=== PATIENT | male | born 1985 | race Two or more races ===

== ENCOUNTER 2016-08-19 14:56 | Emergency (ER) | payer OTHER ==
[2016-08-19 15:05] VITALS: RESP 16
--- NOTE | 2016-08-19 15:21 | EDPHY ---
H & P Time Seen by Provider: 08/19/16 15:07 HPI/ROS: CHIEF COMPLAINT: Clotted fistula. HISTORY OF PRESENT ILLNESS: The patient is a 30-year-old male, with history of end stage renal disease, on dialysis, who presents with a clotted fistula. The patient was unable to receive dialysis today because of the clotted fistula. He was last dialyzed two days ago, on Monday, with no issue. He reports no pain at the site fistula. No upper extremity numbness or weakness. REVIEW OF SYSTEMS: A comprehensive 10 point review of systems is otherwise negative aside from elements mentioned in the history of present illness. Past Medical/Surgical History: End stage renal disease, on dialysis. Mitral valve repair, Cholecystectomy, Thyroidectomy. Social History: No recent alcohol. Smoking Status: Never smoked Physical Exam: General Appearance: Alert, pleasant Eyes: Pupils equal and round ENT, Mouth: Mucous membranes moist Neck: Normal inspection Respiratory: Lungs are clear to auscultation Cardiovascular: Regular rate and rhythm Neurological: A&O, nonfocal, normal gait Skin: Warm and dry, no erythema, warmth or tenderness Extremities: left upper extremity fistula, no thrill Vascular: normal radial pulse Psychiatric: Mood and affect normal Constitutional: Initial Vital Signs Temperature (C) 37.1 C 08/19/16 15:02 Heart Rate 82 08/19/16 15:02 Respiratory Rate 16 08/19/16 15:02 Blood Pressure 90/60 L 08/19/16 15:02 O2 Sat (%) 96 08/19/16 15:02 O2 Delivery Mode Room Air Allergies/Adverse Reactions: No Known Allergies Allergy (Unverified 08/19/16 15:05) Home Medications: Medication Instructions Recorded Aspirin 81mg (*) 81 mg PO DAILY 08/19/16 Calcium Acetate 08/19/16 Metoprolol Tartrate 25 mg PO DAILY 08/19/16 Sensipar 90 mg PO DAILY 08/19/16 Sucralfate 1 gm PO DAILY 08/19/16 Temazepam 15 mg PO DAILY 08/19/16 Medical Decision Making - Diagnostics Imaging Results: Imaging Impressions Angioplasty 08/19/16 00:00 Impression: 1. Complete thrombosis of left upper extremity arteriovenous loop graft fistula , successfully mechanically declotted with difficulty. 2. Covered stent-graft of stenotic outflow segment just upstream of the venous anastomosis, with full patency restored. I discussed results with Dr. Savannah Redd at 2000 hours. - - - - - - - - - - - - - - - - - - - - - - - - - - - - - (PQRS measures: Current medications were listed in the medical record, including all known prescriptions, doru-jgm-ntuwcul medications, herbal medications, and nutritional supplements. Tobacco use: None. Prophylactic antibiotic: Unnecessary. VTE prophylaxis: Unnecessary.) IR call Vascular Stent Procedure 08/19/16 00:00 Impression: 1. Complete thrombosis of left upper extremity arteriovenous loop graft fistula , successfully mechanically declotted with difficulty. 2. Covered stent-graft of stenotic outflow segment just upstream of the venous anastomosis, with full patency restored. I discussed results with Dr. Savannah Redd at 2000 hours. - - - - - - - - - - - - - - - - - - - - - - - - - - - - - (PQRS measures: Current medications were listed in the medical record, including all known prescriptions, ccjp-uvo-itsulrc medications, herbal medications, and nutritional supplements. Tobacco use: None. Prophylactic antibiotic: Unnecessary. VTE prophylaxis: Unnecessary.) IR call Extremity Venous Study 08/19/16 15:25 Impression: 1. Complete thrombosis of left upper extremity arteriovenous loop graft fistula , successfully mechanically declotted with difficulty. 2. Covered stent-graft of stenotic outflow segment just upstream of the venous anastomosis, with full patency restored. I discussed results with Dr. Savannah Redd at 2000 hours. - - - - - - - - - - - - - - - - - - - - - - - - - - - - - (PQRS measures: Current medications were listed in the medical record, including all known prescriptions, vlur-cyo-ljrxyls medications, herbal medications, and nutritional supplements. Tobacco use: None. Prophylactic antibiotic: Unnecessary. VTE prophylaxis: Unnecessary.) IR call ED Course/Re-evaluation: 1525: I consulted with Dr. Sean Muñiz, Radiology, he will arrange for IR thrombectomy. The patient tolerated the procedure well. He returned to the emergency department after the procedure. Discharged home with a prepack of E[place]. - Data Points Medications Given: Discontinued Medications Hydrocodone Bitart/Acetaminophen (E[place] 5/325mg Prepack#6) 1 btl ADAMA LYNN ONE Stop: 08/19/16 19:51 Last Admin: 08/19/16 20:05 Dose: 1 btl Departure - Departure Disposition: Home, Routine, Self-Care Clinical Impression: Complication of AV dialysis fistula Qualifiers: Encounter type: initial encounter Qualified Code(s): T82.9XXA - Unspecified complication of cardiac and vascular prosthetic device, implant and graft, initial encounter Condition: Good Instructions: Additional Information, Hydrocodone/Acetaminophen (By mouth) Additional Instructions: Please call your dialysis today to arrange for your next dialysis. Return to the Emergency Department with new or worsening symptoms. Referrals: Kedar Daniels MD [Primary Care Provider] - As per Instructions Report Scribed for: Savannah Redd Report Scribed by: Kamala Willett Date of Report: 08/19/16 Time of Report: 15:21 Physician Review and Approval Statement: 08/19/16 15:23 Portions of this note were transcribed by a biomedical instrument technician. I personally performed the history, physical exam, and medical decision-making; and confirmed the accuracy of the information in the transcribed note.
[2016-08-19] MEDS ORDERED: fentaNYL 100 MCG/2 ML INJ ONE ×2 (16:41→18:31)
[2016-08-19] MEDS ORDERED: NS 1,000 ML IV SCH (17:00)
[2016-08-19] MEDS ORDERED: ONDANSETRON 4 MG/2 ML VIAL ONE (17:23)
[2016-08-19] MEDS ORDERED: HEPARIN 10,000 UNIT/10 ML MDV ONE (17:24)
[2016-08-19] MEDS ORDERED: IOPAMIDOL (ISOVUE-300) 100 ML BTL ONE ×2 (18:02→18:35)
[2016-08-19] MEDS ORDERED: PROTAMINE SULFATE 50 MG/5 ML VIAL IVP ONE (19:20)
[2016-08-19] MEDS ORDERED: HYDROCOD/APAP 5/325 PREPACK#6 BTL TAKEHOME ONE (19:50)
[2016-08-19 21:52] VITALS: BP 103/60; PULSE 73; TEMP 98.4; O2SAT 97
== END 2016-08-19 20:19 | disposition home or self-care (01) ==
DX: T82.868A Thrombosis due to vascular prosthetic devices, implants and grafts, initial encounter (principal); Z79.82 Long term (current) use of aspirin; Y71.2 Prosthetic and other implants, materials and accessory cardiovascular devices associated with adverse incidents
CPT/HCPCS: 36906; 36907; 99152; 99153; 99283; C1725; C1757; C1769; C1874; C1887; C1894; J1644; J2405; J2720; J3010; Q9967

== ENCOUNTER 2016-09-02 14:44 | Emergency (ER) | payer OTHER ==
--- NOTE | 2016-09-02 17:18 | EDPHY ---
H & P Stated Complaint: pt unable to get dialysis r/t clogged port/last used monday Time Seen by Provider: 09/02/16 17:05 HPI/ROS: CHIEF COMPLAINT: Clogged dialysis port HISTORY OF PRESENT ILLNESS: This is a 30-year-old male patient presenting to the emergency department complaining of possible clogged dialysis port. Patient was at dialysis around 2 o'clock today they were attempting to access his dialysis port unable to was sent here for possible clot. Patient states his last dialysis was Monday without complications. Was seen 2 weeks ago for the same problem clogged fistula. Patient states he is having pain from the fistula to his left axilla, was unable to get dialysis today. Denies any chest pain or shortness of breath REVIEW OF SYSTEMS: Constitutional: No fever, no chills. Eyes: No discharge. ENT: No sore throat. Cardiovascular: No chest pain, no palpitations. Respiratory: No cough, no shortness of breath. Gastrointestinal: No abdominal pain, no vomiting. Genitourinary: No hematuria. Musculoskeletal: No back pain. Left upper extremity pain Skin: No rashes. Neurological: No headache. Source: Patient, Old records - Personal History Current Tetanus/Diphtheria Vaccine: Yes - Medical/Surgical History Hx Asthma: No Hx Chronic Respiratory Disease: No Hx Diabetes: No Hx Cardiac Disease: Yes Hx Renal Disease: Yes Hx Cirrhosis: No Hx Alcoholism: No Hx HIV/AIDS: No Hx Splenectomy or Spleen Trauma: No Other PMH: ESRD, Mitral valve repair., Choly, thyroidectomy - Social History Smoking Status: Never smoked - Physical Exam Exam: General Appearance: Alert, no distress. Eyes: Pupils equal and round no pallor or injection. Icterus ENT, Mouth: Mucous membranes moist. Respiratory: There are no retractions, lungs are clear to auscultation. Cardiovascular: Regular rate and rhythm. Gastrointestinal: Abdomen is soft and nontender, no masses, bowel sounds normal. Neurological: No focal deficits. Answering questions appropriately Skin: Warm and dry, no rashes. Musculoskeletal: Neck is supple nontender. Left upper extremity fistula no bruit noted no thrill, tender on palpation up to left axilla Extremities: symmetrical, full range of motion. Psychiatric: Patient is oriented X 3, there is no agitation. Constitutional: Initial Vital Signs Temperature (C) 36.9 C 09/02/16 15:00 Heart Rate 76 09/02/16 15:00 Respiratory Rate 17 09/02/16 15:00 Blood Pressure 92/55 L 09/02/16 15:00 O2 Sat (%) 97 09/02/16 15:00 O2 Delivery Mode Room Air Allergies/Adverse Reactions: No Known Allergies Allergy (Verified 09/02/16 15:00) Home Medications: Medication Instructions Recorded Aspirin 81mg (*) 81 mg PO DAILY 08/19/16 Calcium Acetate 08/19/16 Metoprolol Tartrate 25 mg PO DAILY 08/19/16 Sensipar 90 mg PO DAILY 08/19/16 Sucralfate 1 gm PO DAILY 08/19/16 Temazepam 15 mg PO DAILY 08/19/16 Medical Decision Making ED Course/Re-evaluation: Discussed ED plan of care: CBC, CMP, ultrasound left upper extremity 183: Spoke with Dr. Kelley, positive clot noted to fistula 1834: Consult with Dr. Grijalva with [facility], aware potassium 5.7 recommend call and consult consult with interventional Radiology Dr. Sarah, they will attempt to unclog is for this evening. Then patient can follow up on dialysis on Monday: Dewey with Interventional Radiology at bedside with Dr. Sarah , the tPA injected into fistula. Patient to IR within an hour 2030: Patient re-evaluation stable no apparent distress resting comfortably 2130: Patient going to IR, stable no apparent distress 0010: Patient back from IR. No complications during procedure. Positive thrill positive bruit noted to fistula, pressure dressings noted. Patient stable not in any apparent distress 0140: Discharge home---> stable, not in any distress, no bleeding noted to fistula. discussed all discharge instructions with patient Differential Diagnosis: Other differential diagnosis considered but not limited to emergent dialysis, hyperkalemia, - Data Points Laboratory Results: Laboratory Results 09/02/16 17:50 09/02/16 17:50 09/02/16 09/02/16 17:50 17:50 WBC 11.20 10^3/uL H 10^3/uL (3.80-9.50) RBC 3.31 10^6/uL L 10^6/uL (4.40-6.38) Hgb 10.8 g/dL L g/dL (13.7-17.5) Hct 33.8 % L % (40.0-51.0) MCV 102.1 fL H fL (81.5-99.8) MCH 32.6 pg pg (27.9-34.1) MCHC 32.0 g/dL L g/dL (32.4-36.7) RDW 14.7 % % (11.5-15.2) Plt Count 301 10^3/uL 10^3/uL (150-400) MPV 10.4 fL fL (8.7-11.7) Neut % (Auto) 49.5 % % (39.3-74.2) Lymph % (Auto) 33.8 % % (15.0-45.0) Sibley % (Auto) 11.9 % % (4.5-13.0) Eos % (Auto) 4.0 % % (0.6-7.6) Baso % (Auto) 0.4 % % (0.3-1.7) Nucleat RBC Rel Count 0.3 % H % (0.0-0.2) Absolute Neuts (auto) 5.54 10^3/uL 10^3/uL (1.70-6.50) Absolute Lymphs (auto) 3.78 10^3/uL H 10^3/uL (1.00-3.00) Absolute Monos (auto) 1.33 10^3/uL H 10^3/uL (0.30-0.80) Absolute Eos (auto) 0.45 10^3/uL H 10^3/uL (0.03-0.40) Absolute Basos (auto) 0.05 10^3/uL 10^3/uL (0.02-0.10) Absolute Nucleated RBC 0.03 10^3/uL H 10^3/uL (0-0.01) Immature Gran % 0.4 % % (0.0-1.1) Immature Gran # 0.05 10^3/uL 10^3/uL (0.00-0.10) Sodium 141 mEq/L mEq/L (134-144) Potassium 5.7 mEq/L H mEq/L (3.5-5.2) Chloride 101 mEq/L mEq/L (97-110) Carbon Dioxide 20 mEq/l L mEq/l (22-31) Anion Gap 20 mEq/L H mEq/L (8-16) BUN 76 mg/dL H mg/dL (7-23) Creatinine 15.3 mg/dL H* mg/dL (0.7-1.3) Estimated GFR 4 Glucose 79 mg/dL mg/dL (70-100) Calcium 8.0 mg/dL L mg/dL (8.5-10.4) Total Bilirubin 0.7 mg/dL mg/dL (0.1-1.4) AST 15 IU/L L IU/L (17-59) ALT 29 IU/L IU/L (21-72) Alkaline Phosphatase 60 IU/L IU/L (38-126) Total Protein 7.9 g/dL g/dL (6.3-8.2) Albumin 4.4 g/dL g/dL (3.5-5.0) Medications Given: Discontinued Medications Oxycodone/Acetaminophen (Percocet 5/325) 1 tab PO EDNOW ONE Stop: 09/03/16 00:56 Last Admin: 09/03/16 00:58 Dose: 1 tab Departure - Departure Clinical Impression: Hyperkalemia Dialysis AV fistula malfunction Qualifiers: Encounter type: subsequent encounter Qualified Code(s): T82.590D - Other mechanical complication of surgically created arteriovenous fistula, subsequent encounter Condition: Good Instructions: Oxycodone/Acetaminophen (By mouth), Hyperkalemia (ED), Fistulogram (ED) Additional Instructions: 1. Decrease your intake of potassium over the weekend 2. Monitor your fistula for any bleeding, increased pain, if you have any chest pain return to the ER 3. Follow up on Monday for dialysis Referrals: Kedar Daniels MD [Primary Care Provider] - As per Instructions
[2016-09-02 18:01] LABS: % IMMATURE GRANULYOCYTES 0.4 % (0.0-1.1); ABSOLUTE IMMATURE GRANULOCYTES 0.05 10^3/uL (0.00-0.10); ABSOLUTE NRBC COUNT 0.03 10^3/uL (0-0.01); ADD DIFF? NO; ADD MORPH? NO; ADD SCAN? NO; ATYPICAL LYMPHOCYTE FLAG 10 (0-99); FRAGMENT RBC FLAG 0 (0-99); HEMATOCRIT 33.8 % (40.0-51.0); HEMOGLOBIN 10.8 g/dL (13.7-17.5); LEFT SHIFT FLG 0 (0-99); LIPEMIA HEMOLYSIS FLAG 80 (0-99); MEAN CELL HEMOGLOBIN 32.6 pg (27.9-34.1); MEAN CELL VOLUME 102.1 fL (81.5-99.8); MEAN PLATELET VOLUME 10.4 fL (8.7-11.7); NRBC-AUTO% 0.3 % (0.0-0.2); PLATELET CLUMPS FLAG 10 (0-99); PLATELET COUNT 301 10^3/uL (150-400); RED BLOOD CELL COUNT 3.31 10^6/uL (4.40-6.38); RED CELL DISTRIBUTION WIDTH 14.7 % (11.5-15.2)
[2016-09-02 18:21] LABS: ALANINE AMINOTRANSFERASE 29 IU/L (21-72); ALBUMIN 4.4 g/dL (3.5-5.0); ALKALINE PHOSPHATASE 60 IU/L (38-126); ANION GAP 20 mEq/L (8-16); ASPARTATE AMINOTRANSFERASE 15 IU/L (17-59); BILIRUBIN,TOTAL 0.7 mg/dL (0.1-1.4); CARBON DIOXIDE 20 mEq/l (22-31); CHLORIDE 101 mEq/L (97-110); GLUCOSE 79 mg/dL (70-100); POTASSIUM 5.7 mEq/L (3.5-5.2); SODIUM 141 mEq/L (134-144); TOTAL PROTEIN 7.9 g/dL (6.3-8.2)
[2016-09-02 18:37] LABS: GLOMERULAR FILTRATION RATE 4
[2016-09-02 18:38] LABS: CREATININE 15.3 mg/dL (0.7-1.3)
[2016-09-02] MEDS ORDERED: ALTEPLASE 2 MG VIAL ONE ×2 (19:15→19:23)
[2016-09-02] MEDS ORDERED: ONDANSETRON 4 MG/2 ML VIAL ONE (21:52)
[2016-09-02] MEDS ORDERED: fentaNYL 100 MCG/2 ML INJ ONE (21:52)
[2016-09-03] MEDS ORDERED: IOPAMIDOL (ISOVUE-300) 100 ML BTL ONE (00:05)
[2016-09-03] MEDS ORDERED: OXYCODONE/APAP 5/325 TAB PO ONE (00:55)
[2016-09-03] MEDS ORDERED: OXYCODONE/APAP 5/325MG PREPACK#4 BTL TAKEHOME ONE (01:38)
[2016-09-03 02:02] VITALS: BP 105/59; PULSE 88; RESP 16; TEMP 97.9; O2SAT 96
== END 2016-09-03 02:02 | disposition home or self-care (01) ==
PROC: 03C83ZZ Extirpation of Matter from Left Brachial Artery, Percutaneous Approach (ICD-10-PCS; principal; 2016-09-02)
PROC: 03763ZZ Dilation of Left Axillary Artery, Percutaneous Approach (ICD-10-PCS; principal; 2016-09-02)
PROC: 05783DZ Dilation of Left Axillary Vein with Intraluminal Device, Percutaneous Approach (ICD-10-PCS; principal; 2016-09-02)
DX: T82.590A Other mechanical complication of surgically created arteriovenous fistula, initial encounter (principal); E87.5 Hyperkalemia; Z45.2 Encounter for adjustment and management of vascular access device; Z79.82 Long term (current) use of aspirin; Y82.8 Other medical devices associated with adverse incidents
CPT/HCPCS: 37184; 37236; 93971; 99284; C1725; C1769; C1876; C1894; J1644; J2997; J3010; Q9967; J2405

== ENCOUNTER 2016-09-26 14:39 | Emergency (ER) | payer OTHER ==
[2016-09-26 14:47] VITALS: TEMP 98.2
--- NOTE | 2016-09-26 15:17 | EDPHY ---
H & P Time Seen by Provider: 09/26/16 15:02 HPI/ROS: CHIEF COMPLAINT: Thrombosed left arm fistula HISTORY OF PRESENT ILLNESS: This 30-year-old man has end-stage renal disease and is dialysis dependent. He had his left arm fistula initially placed in [facility] and had it opened by interventional radiology here on August 19 and again on September 02. He dialyzes Monday and had his dialysis on Monday without complications but presented today and they were unable to access is graft. Currently there is no thrill and the patient says he is here because it is clotted. Denies dizziness or syncope, denies chest pain or shortness of breath. REVIEW OF SYSTEMS: Eye: no change in vision ENT: no sore throat Cardiac: no chest pain or syncope Pulmonary: no cough or SOB Abdomen: no vomiting, diarrhea, abdominal pain Musculoskeletal: no back pain Skin: no rash Neuro: no headache Constitutional: no fever : no urinary symptoms A comprehensive 10 point review of systems is otherwise negative aside from elements mentioned in the history of present illness. PAST MEDICAL HISTORY: End-stage renal disease. Mitral valve repair, cholecystectomy. Social history: Nonsmoker General Appearance: Alert and conversant, cooperative. Eyes: No scleral icterus. ENT, Mouth: Normal mucous membranes. Respiratory: Normal respiratory effort, breath sounds equal, lungs are clear to auscultation. Cardiovascular: Regular rate and rhythm. Patient has left arm vascular AV fistula which does not have a thrill and feels firm to palpation. There is no overlying swelling or redness or warmth. Normal motor and sensory in the left hand. Left hand is well perfused. Gastrointestinal: Abdomen is soft and non tender. Neurological: Alert and oriented x3. Normally conversant. Face symmetric, normal movement and sensation in all extremities. Skin: Warm and dry, no rashes. Musculoskeletal: No peripheral edema and no joint swelling. Psychiatric: Not agitated. Emergency Department course/MDM: Discussed with Allie 1516. Labs drawn to check potassium. Discussed with Dr. Sarah at 3:32 p.m., interventional radiology does not have additional ability to unclog his fistula , will place dialysis catheter tunneled tomorrow morning as long as his earth moving technician is okay with him waiting for dialysis until tomorrow. Discussed with Dr. Bhagat at 8200. She recommends discharge with 60 g oral Kayexalate, tunneled catheter placement tomorrow, will come to ER afterwards for recheck of labs and dialysis tomorrow in the hospital if necessary as per her, patrick Perez does not dialyze on Tuesdays. Smoking Status: Never smoked Constitutional: Initial Vital Signs Temperature (C) 36.8 C 09/26/16 14:45 Heart Rate 72 09/26/16 14:45 Respiratory Rate 16 09/26/16 14:45 Blood Pressure 135/81 H 09/26/16 14:45 O2 Sat (%) 96 09/26/16 14:45 O2 Delivery Mode Room Air Allergies/Adverse Reactions: No Known Allergies Allergy (Verified 09/26/16 14:45) Home Medications: Medication Instructions Recorded Aspirin 81mg (*) 81 mg PO DAILY 08/19/16 Calcium Acetate 08/19/16 Metoprolol Tartrate 25 mg PO DAILY 08/19/16 Sensipar 90 mg PO DAILY 08/19/16 Sucralfate 1 gm PO DAILY 08/19/16 Temazepam 15 mg PO DAILY 08/19/16 Medical Decision Making - Data Points Laboratory Results: Laboratory Results 09/26/16 15:07 09/26/16 15:07 09/26/16 09/26/16 15:07 15:07 WBC 9.55 10^3/uL H 10^3/uL (3.80-9.50) RBC 3.21 10^6/uL L 10^6/uL (4.40-6.38) Hgb 10.4 g/dL L g/dL (13.7-17.5) Hct 32.0 % L % (40.0-51.0) MCV 99.7 fL fL (81.5-99.8) MCH 32.4 pg pg (27.9-34.1) MCHC 32.5 g/dL g/dL (32.4-36.7) RDW 14.0 % % (11.5-15.2) Plt Count 207 10^3/uL 10^3/uL (150-400) MPV 10.7 fL fL (8.7-11.7) Neut % (Auto) 50.3 % % (39.3-74.2) Lymph % (Auto) 36.5 % % (15.0-45.0) [place]kins % (Auto) 9.9 % % (4.5-13.0) Eos % (Auto) 2.5 % % (0.6-7.6) Baso % (Auto) 0.5 % % (0.3-1.7) Nucleat RBC Rel Count 0.0 % % (0.0-0.2) Absolute Neuts (auto) 4.79 10^3/uL 10^3/uL (1.70-6.50) Absolute Lymphs (auto) 3.49 10^3/uL H 10^3/uL (1.00-3.00) Absolute Monos (auto) 0.95 10^3/uL H 10^3/uL (0.30-0.80) Absolute Eos (auto) 0.24 10^3/uL 10^3/uL (0.03-0.40) Absolute Basos (auto) 0.05 10^3/uL 10^3/uL (0.02-0.10) Absolute Nucleated RBC 0.00 10^3/uL 10^3/uL (0-0.01) Immature Gran % 0.3 % % (0.0-1.1) Immature Gran # 0.03 10^3/uL 10^3/uL (0.00-0.10) Sodium 140 mEq/L mEq/L (134-144) Potassium 5.6 mEq/L H mEq/L (3.5-5.2) Chloride 96 mEq/L L mEq/L (97-110) Carbon Dioxide 20 mEq/l L mEq/l (22-31) Anion Gap 24 mEq/L H mEq/L (8-16) BUN 117 mg/dL H* mg/dL (7-23) Creatinine 18.2 mg/dL H* mg/dL (0.7-1.3) Estimated GFR 3 Glucose 91 mg/dL mg/dL (70-100) Calcium 7.7 mg/dL L mg/dL (8.5-10.4) Total Bilirubin 0.5 mg/dL mg/dL (0.1-1.4) AST 10 IU/L L IU/L (17-59) ALT 30 IU/L IU/L (21-72) Alkaline Phosphatase 76 IU/L IU/L (38-126) Total Protein 7.4 g/dL g/dL (6.3-8.2) Albumin 4.2 g/dL g/dL (3.5-5.0) Medications Given: Discontinued Medications Sodium Polystyrene Sulfonate (Kayexalate) 60 gm PO EDNOW ONE Stop: 09/26/16 17:31 Last Admin: 09/26/16 17:34 Dose: 60 gm Departure - Departure Disposition: Home, Routine, Self-Care Clinical Impression: ESRD (end stage renal disease) on dialysis AV fistula occlusion Qualifiers: Encounter type: initial encounter Qualified Code(s): T82.898A - Other specified complication of vascular prosthetic devices, implants and grafts, initial encounter Condition: Good Instructions: End Stage Kidney Disease (ED) Additional Instructions: Keep your appointment tomorrow morning for a tunneled dialysis catheter as scheduled. After the procedure is complete, you need to come to the emergency department to get your labs drawn to check the potassium and see if you needs dialysis tomorrow in the hospital. Referrals: Kedar Daniels MD [Primary Care Provider] - As per Instructions
[2016-09-26 15:20] LABS: % IMMATURE GRANULYOCYTES 0.3 % (0.0-1.1); ABSOLUTE IMMATURE GRANULOCYTES 0.03 10^3/uL (0.00-0.10); ADD DIFF? NO; ADD MORPH? NO; ADD SCAN? NO; ATYPICAL LYMPHOCYTE FLAG 0 (0-99); FRAGMENT RBC FLAG 0 (0-99); HEMOGLOBIN 10.4 g/dL (13.7-17.5); LEFT SHIFT FLG 0 (0-99); LIPEMIA HEMOLYSIS FLAG 80 (0-99); MEAN CELL HEMOGLOBIN 32.4 pg (27.9-34.1); MEAN CELL HEMOGLOBIN CONCENTR. 32.5 g/dL (32.4-36.7); MEAN CELL VOLUME 99.7 fL (81.5-99.8); MEAN PLATELET VOLUME 10.7 fL (8.7-11.7); PLATELET CLUMPS FLAG 10 (0-99); PLATELET COUNT 207 10^3/uL (150-400); RED BLOOD CELL COUNT 3.21 10^6/uL (4.40-6.38)
[2016-09-26 15:52] LABS: ALANINE AMINOTRANSFERASE 30 IU/L (21-72); ALBUMIN 4.2 g/dL (3.5-5.0); ALKALINE PHOSPHATASE 76 IU/L (38-126); ANION GAP 24 mEq/L (8-16); ASPARTATE AMINOTRANSFERASE 10 IU/L (17-59); BILIRUBIN,TOTAL 0.5 mg/dL (0.1-1.4); CALCIUM 7.7 mg/dL (8.5-10.4); CARBON DIOXIDE 20 mEq/l (22-31); CHLORIDE 96 mEq/L (97-110); GLUCOSE 91 mg/dL (70-100); POTASSIUM 5.6 mEq/L (3.5-5.2); SODIUM 140 mEq/L (134-144); TOTAL PROTEIN 7.4 g/dL (6.3-8.2)
[2016-09-26 16:05] LABS: GLOMERULAR FILTRATION RATE 3
[2016-09-26 16:06] LABS: CREATININE 18.2 mg/dL (0.7-1.3)
[2016-09-26] MEDS ORDERED: SODIUM POLY SULF 15 GM/60 ML BOTTLE PO ONE ×2 (16:48→17:30)
[2016-09-26 17:24] VITALS: BP 123/67; PULSE 88; O2SAT 97
[2016-09-26 17:25] VITALS: RESP 18
[2016-09-26] MEDS ORDERED: SODIUM POLY SULF 15 GM/60 ML BOTTLE ONE (17:30)
== END 2016-09-26 17:22 | disposition home or self-care (01) ==
DX: T82.898A Other specified complication of vascular prosthetic devices, implants and grafts, initial encounter (principal); N18.6 End stage renal disease; Z79.82 Long term (current) use of aspirin; Y82.8 Other medical devices associated with adverse incidents

== ENCOUNTER 2016-09-27 11:36 | Inpatient (IN) | payer OTHER ==
[2016-09-27 11:00] LABS: ANION GAP 23 mEq/L (8-16); CARBON DIOXIDE 17 mEq/l (22-31); CHLORIDE 98 mEq/L (97-110); GLUCOSE 88 mg/dL (70-100); SODIUM 138 mEq/L (134-144)
[2016-09-27 11:21] LABS: CREATININE 19.7 mg/dL (0.7-1.3); GLOMERULAR FILTRATION RATE 3
[2016-09-27 11:23] LABS: POTASSIUM 7.2 mEq/L (3.5-5.2)
[~2016-09-27 11:36] MED LIST: FLUMAZENIL 0.5 MG/5 ML MDV IVP ONE; HEPARIN 50,000 UNIT/10 ML VIAL ONE; LIDOCAINE 1% 300 MG/30 ML SDV ONE; MIDAZOLAM 2 MG/2 ML VIAL ONE; NALOXONE HCL 0.4 MG/ML INJ ONE; NS 1,000 ML IV SCH; ONDANSETRON 4 MG/2 ML VIAL ONE; fentaNYL 100 MCG/2 ML INJ ONE
[2016-09-27] MEDS ORDERED: CALCIUM GLUCONATE 50 ML IV ONE (12:25)
[2016-09-27] MEDS ORDERED: INSULIN REGULAR HUMAN 100 UNIT/ML IVP ONE (12:25)
[2016-09-27] MEDS ORDERED: D50W 25 GM/50 ML SYR IVP ONE (12:25)
--- NOTE | 2016-09-27 12:26 | EDPHY ---
H & P Time Seen by Provider: 09/27/16 12:25 HPI/ROS: CHIEF COMPLAINT: Hyperkalemia HISTORY OF PRESENT ILLNESS: 30-year-old man was here yesterday with a clotted left AV dialysis fistula. He is usually a Monday patient. He had a tunneled right subclavian dialysis catheter placed today and his potassium is 7.2. He denies shortness of breath or dizziness, no chest pain, no syncope. He does not have swollen legs. REVIEW OF SYSTEMS: Eye: no change in vision ENT: no sore throat Cardiac: no chest pain or syncope Pulmonary: no cough or SOB Abdomen: no vomiting, diarrhea, abdominal pain Musculoskeletal: no back pain Skin: Thrombosed left AV fistula. Neuro: no headache, no weakness or numbness in left hand Constitutional: no fever : no urinary symptoms A comprehensive 10 point review of systems is otherwise negative aside from elements mentioned in the history of present illness. PAST MEDICAL HISTORY: Dialysis dependent, mitral valve repair, thyroid, cholecystectomy Social history: Nonsmoker Vital signs at 11:49 a.m. include blood pressure 95/68, heart rate 62, respiratory rate 16, oxygen saturation 100%, temperature 36.8degrees. General Appearance: Alert and conversant, cooperative. Eyes: No scleral icterus. ENT, Mouth: Normal mucous membranes. Respiratory: Normal respiratory effort, breath sounds equal, lungs are clear to auscultation. Cardiovascular: Regular rate and rhythm. Left AV fistula is clotted without a thrill. He has a tunneled right subclavian dialysis catheter in place. Gastrointestinal: Abdomen is soft and non tender. Neurological: Alert and oriented x3. Normally conversant. Face symmetric, normal movement and sensation in all extremities. Skin: Warm and dry, no rashes. Musculoskeletal: No peripheral edema and no joint swelling. Psychiatric: Not agitated. Emergency Department course/MDM: Nikolay Funez 1232. Insulin 10 units, sodium bicarbonate 1 amp, dextrose 1 amp, calcium chloride 10 mL. Admission for dialysis emergently with hyperkalemia. Does not appear to be fluid overloaded. Discussed with Demarcus at 12:38 p.m., patient will go directly to dialysis and then to the telemetry floor. He will need to have outpatient vascular surgery consultation for a permanent dialysis access. Smoking Status: Never smoked Constitutional: Initial Vital Signs Blood Pressure 95/64 L 09/27/16 09:59 O2 Delivery Mode Room Air O2 (L/minute) 2 Allergies/Adverse Reactions: No Known Allergies Allergy (Verified 09/26/16 14:45) Home Medications: Medication Instructions Recorded Aspirin [Aspirin 81mg (*)] 81 mg PO DAILY 08/19/16 Calcium Acetate [Phoslo (*)] 2 - 4 cap PO TIDMEAL 08/19/16 Cinacalcet HCl [Sensipar (*)] 90 mg PO DAILY 08/19/16 Sucralfate [Carafate 1 GM (*)] 1 gm PO DAILY 08/19/16 Temazepam [Restoril 15 MG (*)] 15 mg PO HSPRN PRN 08/19/16 Sevelamer Carbonate [Renvela] 2.4 gm PO TIDMEAL 09/27/16 Medical Decision Making - Diagnostics EKG Interpretation: 12-lead EKG interpreted by me; official reading is in trace master. My interpretation is junctional rhythm rate 59 with QRS 106. Imaging Results: Imaging Impressions Central Venous Line 09/27/16 09:15 Impression: 1. Patent central veins. 2. Tunneled right jugular dialysis catheter placed. Critical Care Time: Critical care time spent by me, Dr. Mcbride, exclusively with the care of this patient was 30 minutes, exclusive of PA or PORTABLE PINCH RIVETER time and exclusive of separate procedures. The organ system at risk was metabolic and I ordered consultation with hospitalist and hydrographic engineer, review of studies, administration of medications to include insulin bicarbonate glucose and calcium to stabilize the patient and prevent worsening of the patient's condition. - Data Points Laboratory Results: Laboratory Results 09/27/16 10:32 09/27/16 10:32 Sodium 138 mEq/L mEq/L (134-144) Potassium 7.2 mEq/L H* mEq/L (3.5-5.2) Chloride 98 mEq/L mEq/L (97-110) Carbon Dioxide 17 mEq/l L mEq/l (22-31) Anion Gap 23 mEq/L H mEq/L (8-16) BUN 135 mg/dL H* mg/dL (7-23) Creatinine 19.7 mg/dL H* mg/dL (0.7-1.3) Estimated GFR 3 Glucose 88 mg/dL mg/dL (70-100) Calcium 7.0 mg/dL L mg/dL (8.5-10.4) Medications Given: Discontinued Medications Dextrose (Dextrose 50% Syringe) 25 gm IVP EDNOW ONE Stop: 09/27/16 12:26 Last Admin: 09/27/16 12:40 Dose: 25 gm Calcium Gluconate (Calcium Gluconate 1 Gm (Premix)) 50 mls @ 100 mls/hr IV EDNOW ONE Stop: 09/27/16 12:54 Last Admin: 09/27/16 12:51 Dose: 50 mls Insulin Human Regular (Humulin R) 10 unit IVP EDNOW ONE Stop: 09/27/16 12:26 Last Admin: 09/27/16 12:42 Dose: 10 units Morphine Sulfate (Morphine) 4 mg IVP EDNOW ONE Stop: 09/27/16 13:15 Last Admin: 09/27/16 13:16 Dose: 4 mg Sodium Bicarbonate (Sodium Bicarbonate) 50 meq IVP EDNOW ONE Stop: 09/27/16 12:34 Last Admin: 09/27/16 12:51 Dose: 50 meq Departure - Departure Disposition: [facility] Inpatient Acute Clinical Impression: Hyperkalemia Condition: Serious
[2016-09-27] MEDS ORDERED: SODIUM BICARBONATE 50 MEQ/50 ML SYR IVP ONE (12:33)
--- NOTE | 2016-09-27 12:49 | CPEKG ---
Heart Rate: 59 RR Interval: 1017 QRSD Interval: 106 QT Interval: 476 QTC Interval: 472 QRS [place]: 79 T Wave [place]: 25 EKG Severity - ABNORMAL ECG - EKG Impression: ACCELERATED JUNCTIONAL ESCAPE RHYTHM EKG Impression: BORDERLINE PROLONGED QT INTERVAL Electronically Signed By: Dayne Mcbride 27-Sep-2016 13:41:52
[2016-09-27] MEDS ORDERED: TEMAZEPAM 15 MG CAP PO PRN (14:14)
[2016-09-27] MEDS ORDERED: ONDANSETRON 4 MG/2 ML VIAL IVP PRN (14:15)
[2016-09-27] MEDS ORDERED: ONDANSETRON DISINTEGRATING 4 MG TAB PO PRN (14:15)
[2016-09-27] MEDS ORDERED: ACETAMINOPHEN 325 MG TAB PO PRN (14:15)
--- NOTE | 2016-09-27 15:09 | GHP ---
[f rep st] HISTORY AND PHYSICAL DATE OF ADMISSION: 09/27/2016 CHIEF COMPLAINT: AV fistula clotted, has not gotten dialysis. HISTORY OF PRESENT ILLNESS: This is a 30-year-old male with a history of end-stage renal disease du e to polycystic kidney disease. His dialysis catheter clotted yesterday, and apparently he did not get dialysis yesterday. He had a tunnelled dialysis catheter placed today, this morning, and he is being admitted for dialysis. He does feel okay other than being hungry. Otherwise, he denies any s ymptoms. No edema or shortness of breath, no fevers or chills. REVIEW OF SYSTEMS: A 10-point review of systems was obtained and otherwise was negative. PAST MEDICAL HISTORY: 1. End-stage renal disease due to polycystic kidney disease. 2. Mitral valve replacement. He is on aspirin for prophylaxis, so I am not sure if this was a [facility] anical valve. MEDICATIONS: Reviewed. SOCIAL HISTORY: No smoking or alcohol. FAMILY HISTORY: No family history of polycystic kidney disease. PHYSICAL EXAM: VITAL SIGNS: Afebrile, blood pressure is 103/78, heart rate 59, oxygen saturation 9 8% on room air. GENERAL: The patient is well developed, in no apparent distress. HEENT: Nonicter ic sclerae. Extraocular muscles intact. Moist mucous membranes. NECK: Supple. No thyromegaly. LUNGS: Good effort. Clear to auscultation bilaterally. CARDIOVASCULAR: Regular rate and rhythm. There is a midsternal sternotomy scar. ABDOMEN: Positive bowel sounds. Soft, nontender, nondiste nded. No hepatosplenomegaly. EXTREMITIES: No clubbing, cyanosis, or edema. SKIN: Without rash. Otherwise intact. NEUROLOGIC: He is alert and oriented x3. Moves all 4 extremities equally. PSY CH: Normal mood and affect. LABS: White count 9. Chemistry: Sodium 138, potassium 7.2, BUN 135, creatinine 19.9. EKG alysa griggs reviewed, shows peaked T-waves. ASSESSMENT: This is a 30-year-old male presenting with hyperkalemia and need for dialysis. PLAN: 1. Hyperkalemia. Patient has already received calcium gluconate, insulin, bicarbonate, and Kayexal ate. He is getting dialysis as I interview the patient. He will probably get dialysis again tomorr ow. 2. End-stage renal disease. As above. 3. Clogged AV fistula. We will defer to Renal. 4. History of mitral valve repair. Continue on aspirin for stroke prophylaxis. /[id number]/MODL
--- NOTE | 2016-09-27 17:19 | SOAPPROG ---
DAYDAY Progress Note Assessment/Plan: Assessment:Plan: ESRD-normally gets dialysis MWF at [facility] dialysis -now with access problems -in need of emergency Hd today due to hyperkalemia -risk for rebound hyperkalemia -he will receive dialysis today and tomorrow as inpatient -this will get him on his regular outpatient schedule and hopefully make up for the lack of effective clearance of waste products and potassium this last week Hyperkalemia-stable on Hd -had hyperkalemia with junctional rhythm -responding to Rx Access-thrombosed AVF -now with tunneled catheter 09/27/16 17:16 Subjective: stable on dialysis Objective: Vital Signs Temp Pulse Resp BP Pulse Ox 36.6 C 59 L 19 103/78 98 09/27/16 11:50 09/27/16 12:58 09/27/16 12:58 09/27/16 12:58 09/27/16 12:58 Physical Exam - Physical Exam General Appearance: WD/WN, alert, no apparent distress, thin EENT: normal ENT inspection Neck: normal inspection, other (R IJ tunneled dialysis catheter) Respiratory: lungs clear, normal breath sounds, No respiratory distress Cardiac/Chest: regular rate, rhythm, systolic murmur Abdomen: normal bowel sounds, non-tender, soft, No organomegaly Skin: normal color, warm/dry Extremities: No swelling Neuro/Psych: no motor/sensory deficits, alert, normal mood/affect ICD10 Worksheet Patient Problems: Problems Problem Status Onset Hyperkalemia Acute
--- NOTE | 2016-09-27 18:09 | GCON ---
[f rep st] CONSULTATION NEPHROLOGY CONSULTATION DATE OF CONSULTATION: 09/27/2016 REASON FOR CONSULTATION: 1. End-stage renal disease, in need of dialysis. 2. Life-threatening hyperkalemia. 3. Junctional heart rhythm. PLAN: 1. Emergency dialysis this afternoon. 2. Dialysis again tomorrow in anticipation of some rebound hyperkalemia. 3. Treat potassium acutely in the emergency room while awaiting initiation of dialysis. 4. Avoid IVs, blood pressures, blood draws in the patient's left arm. 5. Consider surgical consultation for new AV fistula. HISTORY: The patient is a pleasant 30-year-old man admitted through the emergency room with hyperka lemia. He has had problems on dialysis with stenosis and clotting of his left upper arm AV fistula. He typically dialyzes Monday/Monday/Monday at the [facility] unit under the care of Dr. Daniels. He had procedures done on August 19, then September 02. On the , he underwent Jeaneth thrombectomy, along with fistulogram and angioplasty, with infusion of lytic therapy. He subsequen tly had a stent placed. It sounds like this was able to be used for a while, but unfortunately, he presented with rethrombosis yesterday. At that time, further attempts to get the fistula open were not attempted due to previous issues with his anatomy. Plans were made for a tunneled hemodialysis catheter today. Unfortunately, between today and yesterday, the patient's potassium went up from a level of 5.6 to a level of 7.2. For this reason, he was referred to the emergency room for further evaluation and treatment. PAST MEDICAL HISTORY: End-stage renal disease secondary to polycystic kidney disease. He was on di alysis for a period of time and then underwent a living, related renal transplant from his mother. The transplant lasted for approximately 8 years but was lost to rejection. He subsequently has retu rned to dialysis. He recently moved up to [place] to live with family and to be evaluated through the [facility] systems to see if that could help expedite his plan to receive a second r enal transplant. He has met with some of the team so far at the [facility]. He has an appointment to meet the surgeons later this month. He has had problems with mitral valve disease. It is not clear to me whether that was rheumatic in origin. He states he has had mitral valve replacement on 3 separate occasions. He currently is jn e of any cardiopulmonary symptoms. He has also had gallbladder problems and has undergone cholecystectomy. His other medical problems include hypertension, anemia, and hyperparathyroidism. He has had multiple dialysis access surgeries. He states he has also had parathyroidectomy. Other medical problems include gastroesophageal reflux disease. MEDICATIONS: Outpatient medications are aspirin, calcium acetate, metoprolol 25 mg daily, Sensipar 90 mg daily, sucralfate, as well as temazepam. ALLERGIES: None. FAMILY/SOCIAL HISTORY: Noncontributory. He was born in [place]. He has been on dialysis for appro ximately 10-11 years. He had a transplant that lasted 8 years. He is now back on dialysis. REVIEW OF SYSTEMS: Negative, except for that included in the History of Present Illness. Ten-point review of systems was unremarkable. PHYSICAL EXAMINATION: VITAL SIGNS: Temp is 36.6, pulse 59, respirations 19, blood pressure 103/78, saturating 98% on room air. APPEARANCE: No apparent distress. Skin is unremarkable. He has a le ft upper arm AV fistula that is clotted. It is not inflamed and is nontender. He has a new right-s ided tunneled internal jugular vein dialysis catheter. HEART: Regular, with a 2 to 3/6 murmur. CATHY NGS: Clear to auscultation bilaterally to the bases. ABDOMEN: Benign. No obvious organomegaly or masses. No hepatosplenomegaly. EXTREMITIES: Completely free of edema. SKIN: Free of rashes. N EUROMUSCULAR: Intact, nonfocal, moving all extremities. PSYCHIATRIC: Mood and affect are normal. ASSESSMENT: End-stage renal disease, in need of emergency dialysis. The patient was found to have a potassium of 7.2 at the time of placement of a new right-sided tunneled dialysis catheter. His hy perkalemia is certainly due to the effects of the poorly functioning fistula and the inability to ge t regular dialysis because of his access problems. He was treated in the emergency room with D50 in sulin and calcium. Emergency dialysis was arranged. The patient normally gets dialysis Monday/Monn esd/Monday. The plan is to dialyze him this afternoon and then again tomorrow. The patient is at high risk for rebound hyperkalemia given his access issues and current levels of potassium. This w ill get him back on his regular schedule and help avoid complications that could be life-threatening . He currently has a clotted AV fistula. He will need surgical consultation to see if a new fistula c an be created. It sounds like his dialysis access was marginal even before moving from [place]. His surgeon there had advised him that no further interventions could be undertaken to salvage this conn ection. That seems to have been proven the case with the recent studies performed here at [place]. Currently, his blood pressure and volume status appear to be under control. His blood pressure and oxygenation are good. Once dialysis is performed, he should be able to simply go to a monitored bed instead of being in ICU status. The patient is undergoing transplant evaluation at [facility]. Given this, we would deborah id blood products in this patient. This will help reduce the risk of alloimmunization. Copy requested to: Dr. Frances Domingo [facility] Division of Transplant Services /[id number]/MODL
[2016-09-27] MEDS: OXYCODONE/APAP 5/325 TAB PO PRN ×2 (18:36→19:13)
[2016-09-27] MEDS: CALCIUM ACETATE 667 MG CAP PO SCH (19:14)
[2016-09-27] MEDS: SEVELAMER CARBONATE 2.4 GM PO SCH (19:40)
[2016-09-27] MEDS ORDERED: HEPARIN 10,000 UNIT/10 ML MDV ONE (21:00)
[2016-09-28 05:15] LABS: ANION GAP 19 mEq/L (8-16); CALCIUM 8.2 mg/dL (8.5-10.4); CARBON DIOXIDE 22 mEq/l (22-31); CHLORIDE 95 mEq/L (97-110); GLOMERULAR FILTRATION RATE 5; GLUCOSE 82 mg/dL (70-100); POTASSIUM 5.1 mEq/L (3.5-5.2); SODIUM 136 mEq/L (134-144)
[2016-09-28 05:28] LABS: CREATININE 12.6 mg/dL (0.7-1.3)
[2016-09-28] MEDS: OXYCODONE/APAP 5/325 TAB PO PRN ×3 (06:00→11:52)
[2016-09-28 07:17] VITALS: TEMP 98.7
[2016-09-28] MEDS ORDERED: ASPIRIN 81 MG CHEWABLE TAB PO SCH (09:00)
[2016-09-28] MEDS ORDERED: SUCRALFATE 1 GM TAB PO SCH (09:00)
[2016-09-28] MEDS ORDERED: CINACALCET HCL 30 MG TAB PO SCH (09:00)
--- NOTE | 2016-09-28 11:14 | SOAPPROG ---
DAYDAY Progress Note Assessment/Plan: Assessment: 1. esrd: hd today to resume typical mwf schedule. Will need new permanent access , pt aware. 2. access: now with tunneled hd cath, which ran very well. Will need new access as outpt as above. 3. hyperK: resolved with hd, likely exacerbated by recent access issues. 4. dispo: presumably home today. Plan: 09/28/16 11:12 Subjective: Just completed hd, tolerated 2.5L uf without issue. Hoping to go home later today. Objective: Vital Signs Temp Pulse Resp BP Pulse Ox 37.1 C 75 14 92/48 L 96 09/28/16 07:11 09/28/16 07:11 09/28/16 07:11 09/28/16 07:11 09/28/16 07:11 Laboratory Results 09/28/16 04:09 09/27/16 09/28/16 09/29/16 05:59 05:59 05:59 Intake Total 300 Balance 300 Physical Exam - Physical Exam General Appearance: no apparent distress Respiratory: lungs clear Cardiac/Chest: regular rate, rhythm Extremities: pedal edema (none), other (+quiet avg LUE) ICD10 Worksheet Patient Problems: Problems Problem Status Onset Hyperkalemia Acute
[2016-09-28 11:34] VITALS: BP 104/64; PULSE 79; RESP 12; O2SAT 98
[2016-09-28] MEDS: CALCIUM ACETATE 667 MG CAP PO SCH ×2 (11:43→14:31)
[2016-09-28] MEDS: SEVELAMER CARBONATE 2.4 GM PO SCH ×2 (11:44→14:31)
[2016-09-28] MEDS ORDERED: HEPARIN 50,000 UNIT/10 ML VIAL ONE (11:46)
--- NOTE | 2016-09-28 13:34 | PDDCSUM ---
Discharge Summary Discharge Summary: DISCHARGE SUMMARY FOLLOW-UP ITEMS: Follow up with regular outpatient dialysis center DATE OF ADMISSION: 09/27/2016 DATE OF DISCHARGE: 09/28/16 DISCHARGE DIAGNOSES: 1. Acute hyperkalemia 2. Acute metabolic acidosis 3. Clotted AV fistula 4. End-stage renal disease CONSULTATIONS: Nephrology PROCEDURES / IMAGING: Tunnel catheter placed CHIEF COMPLAINT: Clotted AV fistula SUBJECTIVE: Patient is feeling well at time of discharge PHYSICAL EXAM ON DISCHARGE: Systolic blood pressure 90-100, heart rate 60 70, afebrile overnight, satting well on room air, alert awake oriented x3, no apparent distress, no lower extremity edema, no erythema induration or tenderness around the tunnel cath site LABS ON DISCHARGE: Potassium 5.1, serum bicarbonate 22 HOSPITAL COURSE BY PROBLEM: 1. Acute hyperkalemia. The patient presented with acute hyperkalemia potassium level 7.2 in the setting of inability to access his AV fistula an inability to receive outpatient hemodialysis. Emergently received a tunneled catheter placement emergently received hemodialysis. He received 2 dialysis treatments during this hospitalization. 2. End-stage renal disease. Patient had a clotted AV fistula and required emergent catheter placement, after receiving 2 treatments he is stable for discharge and outpatient hemodialysis on his regular schedule. 3. Acute metabolic acidosis. Secondary to inability to access hemodialysis. Serum bicarbonate level was 17 and improved 22 after dialysis. DISCHARGE MEDICATIONS: Please see official discharge medication reconciliation sheet in chart , all home medications the same. DISCHARGE INSTRUCTIONS: Please follow up on your regular scheduled days for hemodialysis. The patient was discharged prior to the originally anticipated 2 midnights of care secondary to highly efficient expeditious care by his nurses, nephrology team, hospitalist, the patient is safe for discharge at this time.
== END 2016-09-28 14:06 | disposition home or self-care (01) | DRG 314 ==
LOC: F2W 17:38
PROVIDERS: ADMIT Internal Medicine; ATTEND Internal Medicine
PROC: 02HV33Z Insertion of Infusion Device into Superior Vena Cava, Percutaneous Approach (ICD-10-PCS; 2016-09-27)
PROC: 5A1D60Z (ICD-10-PCS; principal; 2016-09-27 10:05)
DX: T82.868A Thrombosis due to vascular prosthetic devices, implants and grafts, initial encounter (principal); N18.6 End stage renal disease; E87.2 Acidosis; E87.5 Hyperkalemia
CPT/HCPCS: 96365; C1750; J0610; J1644; J1815; J2250; J2310; J2405; J3010

== ENCOUNTER 2016-10-01 12:52 | Observation (INO) | payer OTHER ==
--- NOTE | 2016-10-01 13:18 | EDPHY ---
H & P Time Seen by Provider: 10/01/16 13:09 HPI/ROS: Chief complaint. Visual issues, lightheaded, nausea vomiting HPI. 30-year-old male presents emergency department with dizziness and nausea vomiting that began this morning. He is better with lying down up and having a eyes closed. When he opens his eyes or moves his head he gets very dizzy. He describes it as a spinning or motion component. No change in his hearing or upper respiratory symptoms or fever. No similar symptoms previously. Patient was just discharged from the hospital this week as he has end-stage renal disease and had a clotted AV fistula. An emergent tunnel catheter was placed and he received 2 rounds of dialysis. His last dialysis was yesterday. Normally he is a Monday dialysis patient ROS Constitutional. no fever/chills, no weakness Eyes. no problems with vision ENT. no sore throat, no nasal drainage Cardiovascular. no chest pain Respiratory. no shortness of breath, no cough Abdominal. Nausea and vomiting . no problems urinating MS. no calf pain/swelling, no neck/back pain, no joint pain Skin. no rash Lymph. no swollen glands Neuro. Dizzy Past Medical/Surgical History: The end-stage renal disease secondary to polycystic kidney disease, recent clotted dialysis catheter, mitral valve replacement, cholecystectomy, hypertension, anemia, hyperparathyroidism Social History: Single, nonsmoker, no alcohol Smoking Status: Never smoked Physical Exam: General Appearance: Alert well-developed male moderate distress vital signs significant for blood pressure 96/52 Eyes: Pupils equal and round no pallor or injection. There is horizontal nystagmus ENT, Mouth: Mucous membranes are moist. Respiratory: There are no retractions, lungs are clear to auscultation. Cardiovascular: Regular rate and rhythm. Gastrointestinal: Abdomen is soft and nontender, no masses, bowel sounds normal. Neurological: Awake and alert, sensory and motor exams grossly normal. Skin: Warm and dry, no rashes. Musculoskeletal: Neck is supple nontender. Extremities symmetrical, full range of motion. Psychiatric: Patient is oriented X 3, there is no agitation. Constitutional: Initial Vital Signs Temperature (C) 37.0 C 10/01/16 13:13 Heart Rate 86 10/01/16 13:13 Respiratory Rate 16 10/01/16 13:13 Blood Pressure 96/52 L 10/01/16 13:13 O2 Sat (%) 98 10/01/16 13:13 O2 Delivery Mode Room Air Allergies/Adverse Reactions: No Known Allergies Allergy (Verified 09/26/16 14:45) Home Medications: Medication Instructions Recorded Aspirin [Aspirin 81mg (*)] 81 mg PO DAILY 08/19/16 Calcium Acetate [Phoslo (*)] 2 - 4 cap PO TIDMEAL 08/19/16 Cinacalcet HCl [Sensipar (*)] 90 mg PO DAILY 08/19/16 Sucralfate [Carafate 1 GM (*)] 1 gm PO DAILY 08/19/16 Temazepam [Restoril 15 MG (*)] 15 mg PO HSPRN PRN 08/19/16 Sevelamer Carbonate [RENVELA] 2.4 gm PO TIDMEAL 09/27/16 Medical Decision Making Procedures: IV normal saline. Zofran IV. meclizine by mouth ED Course/Re-evaluation: Re-evaluation 2:40 p.m.. Patient is improving. He no longer has nystagmus. He is able to open his eyes and look around. No nausea. Recheck again at 3:00 p.m.. Patient now is a nauseated with opening his eyes and moving his head. No vomiting. Otherwise neurologically intact and conversational I consulted and discussed the case with Dr. Nixon, hospitalist, who agrees to the admission Differential Diagnosis: This would appear to be vertigo. He has dizziness with a motion component especially when moving his head and trying to get to standing position and moving his eyes. He did have horizontal nystagmus. No vertical nystagmus that would indicate a PRACTICE ASSISTANT pathology. Patient is somewhat complicated is that he does have end-stage renal failure and elevated BUN and creatinine. - Data Points Laboratory Results: Laboratory Results 10/01/16 13:35 10/01/16 13:35 10/01/16 10/01/16 13:35 13:35 WBC 11.89 10^3/uL H 10^3/uL (3.80-9.50) RBC 3.55 10^6/uL L 10^6/uL (4.40-6.38) Hgb 11.4 g/dL L g/dL (13.7-17.5) Hct 35.6 % L % (40.0-51.0) MCV 100.3 fL H fL (81.5-99.8) MCH 32.1 pg pg (27.9-34.1) MCHC 32.0 g/dL L g/dL (32.4-36.7) RDW 13.9 % % (11.5-15.2) Plt Count 201 10^3/uL 10^3/uL (150-400) MPV 11.9 fL H fL (8.7-11.7) Neut % (Auto) 62.5 % % (39.3-74.2) Lymph % (Auto) 22.5 % % (15.0-45.0) Butler % (Auto) 10.7 % % (4.5-13.0) Eos % (Auto) 3.5 % % (0.6-7.6) Baso % (Auto) 0.6 % % (0.3-1.7) Nucleat RBC Rel Count 0.0 % % (0.0-0.2) Absolute Neuts (auto) 7.44 10^3/uL H 10^3/uL (1.70-6.50) Absolute Lymphs (auto) 2.67 10^3/uL 10^3/uL (1.00-3.00) Absolute Monos (auto) 1.27 10^3/uL H 10^3/uL (0.30-0.80) Absolute Eos (auto) 0.42 10^3/uL H 10^3/uL (0.03-0.40) Absolute Basos (auto) 0.07 10^3/uL 10^3/uL (0.02-0.10) Absolute Nucleated RBC 0.00 10^3/uL 10^3/uL (0-0.01) Immature Gran % 0.2 % % (0.0-1.1) Immature Gran # 0.02 10^3/uL 10^3/uL (0.00-0.10) Sodium 144 mEq/L mEq/L (134-144) Potassium 5.7 mEq/L H mEq/L (3.5-5.2) Chloride 96 mEq/L L mEq/L (97-110) Carbon Dioxide 25 mEq/l mEq/l (22-31) Anion Gap 23 mEq/L H mEq/L (8-16) BUN 68 mg/dL H mg/dL (7-23) Creatinine 11.5 mg/dL H* mg/dL (0.7-1.3) Estimated GFR 5 Glucose 109 mg/dL H mg/dL (70-100) Calcium 8.7 mg/dL mg/dL (8.5-10.4) Medications Given: Discontinued Medications Lorazepam (Ativan Injection) 0.5 mg IVP EDNOW ONE Stop: 10/01/16 13:33 Last Admin: 10/01/16 13:42 Dose: 0.5 mg Meclizine HCl (Meclizine Hcl) 25 mg PO EDNOW ONE Stop: 10/01/16 13:33 Last Admin: 10/01/16 13:42 Dose: 25 mg Ondansetron HCl (Zofran) 4 mg IVP EDNOW ONE Stop: 10/01/16 13:32 Last Admin: 10/01/16 13:42 Dose: 4 mg Departure - Departure Disposition: [facility] Inpatient Acute Clinical Impression: Vertigo Condition: Fair Referrals: Kedar Daniels MD [Primary Care Provider] - As per Instructions
[2016-10-01] MEDS ORDERED: ONDANSETRON 4 MG/2 ML VIAL IVP ONE (13:31)
[2016-10-01] MEDS ORDERED: LORazepam 2 MG/ML INJ IVP ONE (13:32)
[2016-10-01] MEDS ORDERED: MECLIZINE HCL 25 MG TAB PO ONE (13:32)
[2016-10-01 13:52] LABS: % IMMATURE GRANULYOCYTES 0.2 % (0.0-1.1); ABSOLUTE IMMATURE GRANULOCYTES 0.02 10^3/uL (0.00-0.10); ADD DIFF? NO; ADD MORPH? NO; ADD SCAN? NO; ATYPICAL LYMPHOCYTE FLAG 0 (0-99); FRAGMENT RBC FLAG 0 (0-99); HEMATOCRIT 35.6 % (40.0-51.0); HEMOGLOBIN 11.4 g/dL (13.7-17.5); LEFT SHIFT FLG 0 (0-99); LIPEMIA HEMOLYSIS FLAG 80 (0-99); MEAN CELL HEMOGLOBIN 32.1 pg (27.9-34.1); MEAN CELL VOLUME 100.3 fL (81.5-99.8); MEAN PLATELET VOLUME 11.9 fL (8.7-11.7); PLATELET CLUMPS FLAG 0 (0-99); PLATELET COUNT 201 10^3/uL (150-400); RED BLOOD CELL COUNT 3.55 10^6/uL (4.40-6.38); RED CELL DISTRIBUTION WIDTH 13.9 % (11.5-15.2)
[2016-10-01 14:06] LABS: ANION GAP 23 mEq/L (8-16); CALCIUM 8.7 mg/dL (8.5-10.4); CARBON DIOXIDE 25 mEq/l (22-31); CHLORIDE 96 mEq/L (97-110); GLOMERULAR FILTRATION RATE 5; GLUCOSE 109 mg/dL (70-100); POTASSIUM 5.7 mEq/L (3.5-5.2); SODIUM 144 mEq/L (134-144)
[2016-10-01 14:08] LABS: CREATININE 11.5 mg/dL (0.7-1.3)
[2016-10-01] MEDS ORDERED: PROMETHAZINE HCL 25 MG/ML INJ IVP PRN (15:41)
[2016-10-01] MEDS ORDERED: LORazepam 2 MG/ML INJ IVP PRN (15:41)
[2016-10-01] MEDS ORDERED: ACETAMINOPHEN 325 MG TAB PO PRN (15:41)
[2016-10-01] MEDS ORDERED: ONDANSETRON DISINTEGRATING 4 MG TAB PO PRN (15:41)
[2016-10-01] MEDS ORDERED: ONDANSETRON 4 MG/2 ML VIAL IVP PRN (15:41)
[2016-10-01] MEDS ORDERED: MECLIZINE HCL 25 MG TAB PO PRN (15:43)
--- NOTE | 2016-10-01 16:27 | GHP ---
[f rep st] HISTORY AND PHYSICAL DATE OF ADMISSION: 10/01/2016 HISTORY OF PRESENT ILLNESS: The patient is a pleasant 30-year-old gentleman with a history of endst age renal disease secondary to polycystic kidney disease and recent troubles with a clotted AV fistu rebecca, now with a tunneled catheter in his right chest, presents with vertigo-like symptoms. He awoke this morning. He felt malaise and poor, and he was very dizzy as if the room was spinning when he o pened his eyes. He has had no focal weakness or numbness, no difficulty with gait. It sounds like his father was recently sick with the same illness. No fever, chills, cough, sputum, nausea, vomiting, diarrhea. REVIEW OF SYSTEMS: A complete 10-point review of systems conducted and negative except as noted in the HPI. PAST MEDICAL HISTORY: 1. End-stage renal disease. 2. Bilateral nephrectomy for polycystic kidney disease. 3. History of clotted AV fistula. 4. Mitral valve replacement with a porcine valve. ALLERGIES: No known drug allergies. HOME MEDICATIONS: Aspirin, calcium acetate, cinacalcet, sevelamer, sucralfate, and temazepam. SOCIAL HISTORY: No tobacco or alcohol. FAMILY HISTORY: Father recently sick with vertigo. PHYSICAL EXAM: PRESENTING VITAL SIGNS: Blood pressure 96/52, which is about where he lives, pulse 86, breathing 16 times a minute, 98% on room air, afebrile. GENERAL: Uncomfortable with no acute d istress. HEENT: Sclerae anicteric. Oropharynx clear. Mucous membranes moist. NECK: Supple with out lymphadenopathy or JVD. LUNGS: Clear to auscultation bilaterally. HEART: S1, S2 without noti ceable murmur. ABDOMEN: Soft, nontender, nondistended. LOWER EXTREMITIES: Without edema. Calves are nontender. His left upper extremity fistula, which is in the left biceps, does not have a palp able thrill. NEUROLOGIC: Notable for no nystagmus although it was described by the emergency depar tment physician on presentation. He has intact cerebellar testing although his gait has not been wi tnessed. He has no focal numbness or weakness. I have discussed the case Dr. Liang Humphrey. LABS: White count 11.9, hematocrit 35.6, platelets are 201,000. Sodium 144, potassium 5.7, chlorid e 96, bicarb 25, BUN 68, creatinine 11.5, glucose 109. There is no imaging. I reviewed previous [facility] records and summarized in the HPI. ASSESSMENT/PLAN: A 30-year-old gentleman with multiple medical comorbidities here with vertigo. 1. Vertigo. I suspect this is peripheral vertigo. He does have risk factors for stroke of course, but he has intact cerebellar testing so we will hold off on imaging. He is not a candidate for lyt ics. We will provide him with meclizine and p.r.n. Ativan. 2. End-stage renal disease. He had dialysis yesterday. He is not due again until Monday. He bord yanni hyperkalemic so we will go ahead and put him on telemetry. We will hold on IV fluids. We wi ll continue his medications once they have been reconciled. 3. Clotted arteriovenous fistula. He gets dialysis through a different system. He has a referral to a surgeon. He has a well-functioning catheter. We will follow. 4. Diet: Renal diet. DISPOSITION: Observation status. /[id number]/MODL
[2016-10-01] MEDS: SEVELAMER CARBONATE 2.4 GM PO SCH (19:54)
[2016-10-01] MEDS ORDERED: NS 500 ML IV ONE (19:57)
[2016-10-02 04:51] LABS: % IMMATURE GRANULYOCYTES 0.2 % (0.0-1.1); ABSOLUTE IMMATURE GRANULOCYTES 0.02 10^3/uL (0.00-0.10); ADD DIFF? NO; ADD MORPH? NO; ADD SCAN? NO; ATYPICAL LYMPHOCYTE FLAG 0 (0-99); FRAGMENT RBC FLAG 0 (0-99); HEMATOCRIT 31.3 % (40.0-51.0); HEMOGLOBIN 9.9 g/dL (13.7-17.5); LEFT SHIFT FLG 0 (0-99); LIPEMIA HEMOLYSIS FLAG 80 (0-99); MEAN CELL HEMOGLOBIN 32.2 pg (27.9-34.1); MEAN CELL HEMOGLOBIN CONCENTR. 31.6 g/dL (32.4-36.7); PLATELET CLUMPS FLAG 10 (0-99); PLATELET COUNT 169 10^3/uL (150-400); RED BLOOD CELL COUNT 3.07 10^6/uL (4.40-6.38)
[2016-10-02 04:57] LABS: ANION GAP 18 mEq/L (8-16); CARBON DIOXIDE 26 mEq/l (22-31); CHLORIDE 95 mEq/L (97-110); GLUCOSE 85 mg/dL (70-100); POTASSIUM 5.3 mEq/L (3.5-5.2); SODIUM 139 mEq/L (134-144)
[2016-10-02 05:03] LABS: GLOMERULAR FILTRATION RATE 4
[2016-10-02 05:09] LABS: CREATININE 13.9 mg/dL (0.7-1.3)
[2016-10-02 05:33] VITALS: TEMP 97.7
[2016-10-02] MEDS: SEVELAMER CARBONATE 2.4 GM PO SCH (08:52)
[2016-10-02] MEDS ORDERED: CINACALCET HCL 30 MG TAB PO SCH (09:00)
[2016-10-02] MEDS ORDERED: ASPIRIN 81 MG CHEWABLE TAB PO SCH (09:00)
[2016-10-02] MEDS ORDERED: SUCRALFATE 1 GM TAB PO SCH (09:00)
--- NOTE | 2016-10-02 10:01 | SOAPPROG ---
SOAP Progress Note Assessment/Plan: Assessment:Plan: Courtesy Visit: Patient lives in [place]. Dialyzes MWF at [facility] Admitted with dizziness. Now resolved. K 5.7 on admit Now down to 5.3. Appears stable for discharge. Patient has dialysis tomorrow at midday. I gave him the number for Dr. Palmer as the patient expressed interest in getting access surgery locally. He would like to have a third shift dialysis spot in [place], as he is working at [employer] in [place] and does not wish to commute to [place]. I discussed the options available in [place]. 10/02/16 09:58 Objective: Vital Signs Temp Pulse Resp BP Pulse Ox 36.5 C 57 L 16 92/55 L 93 10/02/16 04:00 10/02/16 04:00 10/02/16 04:00 10/02/16 04:00 10/02/16 04:00 Laboratory Results 10/02/16 04:14 10/02/16 04:14 10/01/16 10/02/16 10/03/16 05:59 05:59 05:59 Intake Total 950 Balance 950 ICD10 Worksheet Patient Problems: Problems Problem Status Onset Vertigo Acute Hyperkalemia Acute
--- NOTE | 2016-10-02 10:03 | GDS ---
[f rep st] DISCHARGE SUMMARY ALL DIAGNOSES: 1. Vertigo. 2. Hyperkalemia. 3. End-stage renal disease. 4. Anemia of chronic kidney disease. HOSPITAL COURSE: This is a 30-year-old man, admitted with symptoms consistent with vertigo. He did not receive any imaging, I think this is appropriate given his normal cerebellar exam on the day of discharge. His symptoms have markedly improved. His blood pressure was also slightly low, which m ay have been contributing, though his symptoms seem more consistent with vertigo. He did receive a small fluid bolus to increase his blood pressure. 1. Vertigo: Symptoms improved. Will be prescribed meclizine as needed. He will also be taught maldonado w to do the Yarely maneuvers prior to discharge. 2. Hyperkalemia: Briefly discussed with Dr. Tracy. His potassium is slightly low at 5.3. He has dialysis tomorrow. There is no indication to dialyze him here today. 3. Hypotension: Chronically runs low, normal blood pressure is about 90/50. He was slightly low b efore and received a fluid bolus. 4. Bilateral nephrectomy due to polycystic kidney disease. 5. Dialysis through right tunneled catheter. /[id number]/MODL
[2016-10-02 10:07] VITALS: BP 93/51; PULSE 70; RESP 13; O2SAT 97
[2016-10-02] MEDS ORDERED: SEVELAMER HCL 800 MG TAB PO SCH (12:00)
== END 2016-10-02 11:15 | disposition home or self-care (01) ==
LOC: F2W 15:44
PROVIDERS: ADMIT Internal Medicine; ATTEND Internal Medicine
DX: R42 Dizziness and giddiness (principal); E87.5 Hyperkalemia; N18.6 End stage renal disease; D63.1 Anemia in chronic kidney disease; I95.9 Hypotension, unspecified; Q61.3 Polycystic kidney, unspecified; Z95.2 Presence of prosthetic heart valve; I12.9 Hypertensive chronic kidney disease with stage 1 through stage 4 chronic kidney disease, or unspecified chronic kidney disease; E21.3 Hyperparathyroidism, unspecified; Z90.5 Acquired absence of kidney; Z99.2 Dependence on renal dialysis
CPT/HCPCS: G0378; J2060; J2405; J2550; 96374